=== PATIENT | female | born 1985 | race Caucasian/White ===

== ENCOUNTER 2021-02-25 11:22 | Outpatient (CLI) | payer OTHER, SELFPAY ==
[2021-02-25] VITALS (7 sets, daily range): BP systolic 117–122; BP diastolic 75–83; PULSE 76–87
[2021-02-25 12:18] LABS: Basophils Percent Auto 0.2 % (0.2-1.2); Eosinophils Absolute Auto 0.2 K/mm3 (0-0.3); Eosinophils Percent Auto 1.8 % (0-4.4); Hematocrit 29.8 % (37.0-47.0); Hemoglobin 9.6 g/dL (12.0-15.0); Immature Granulocyte Absolute 0.14 K/mm3 (0.00-0.031); Immature Granulocyte Percent A 1.4 % (0-0.5); Lymphocytes Absolute Auto 1.18 K/mm3 (0.9-3.2); Lymphocytes Percent Auto 11.8 % (18.3-44.2); Mean Corpuscular HGB Conc 32.2 g/dl (32-36); Mean Corpuscular Hemoglobin 26.6 pg (26-34); Mean Corpuscular Volume 82.5 fl (80-100); Mean Platelet Volume 11.1 fl (7.4-10.4); Monocytes Absolute Auto 0.8 K/mm3 (0.1-0.6); Monocytes Percent Auto 7.5 % (2.6-8.5); Neutrophils Absolute Auto 7.7 K/mm3 (1.3-6.7); Neutrophils Percent Auto 77.3 % (45.5-73.1); Platelet Count Result 184 k/mm3 (150-375); Red Blood Count 3.61 M/mm3 (4.2-5.4); Red Cell Distribution Width 14.2 % (11.5-14.5)
[2021-02-25 12:31] LABS: Alanine Aminotransferase 20 U/L (4-35); Albumin Level 2.9 g/dL (3.5-5.1); Alkaline Phosphatase 195 U/L (38-126); Anion Gap 2 mmol/L (8-16); Aspartate Amino Transferase 28 U/L (14-36); Bilirubin,Total 0.4 mg/dL (0.2-1.3); Blood Urea Nitrogen 8 mg/dL (7-17); Calcium 7.9 mg/dL (8.4-10.2); Carbon Dioxide 22 mmol/L (22-30); Chloride 110 mmol/L (98-107); Estimated Glomerular Filt Rate > 60; Glucose 75 mg/dL (65-105); Potassium 4.7 mmol/L (3.4-5.0); Sodium 134 mmol/L (137-145); Uric Acid 5.2 mg/dL (2.5-7.5)
[2021-02-25 12:43] LABS: Add Urine Microscopic? YES; Appearance Urine Cloudy (Clear); Bacteria Urine Trace /hpf; Bilirubin Urine Negative (Negative); Blood Urine Negative (Negative); Color Urine Yellow (Yellow); Glucose Urine UA Negative (Negative); Ketones Urine Negative (Negative); Leukocyte Esterase Ur 1+ LEU/UL (Negative); Mucus Urine Rare /lpf; Nitrate Urine Negative (Negative); Protein Urine 1+ mg/dL (Negative); RBC Urine 0-2 /hpf (0-2); Specific Grav Ur 1.019 (1.001-1.035); Squamous Epithelial Cell Urine Many /hpf (Few)
[2021-02-25 13:05] LABS: Creatinine Urine 157.4 mg/dL; Total Protein Urine Random 9 mg/dL; Ur Ttl Prot Creatinine Ratio 0.06 mg/mg (0-0.20)
--- NOTE | 2021-02-25 13:25 | PC.NURSE ---
Dr De La Rosa on unit, labs and BP's reviewed.
== END 2021-02-25 13:30 | disposition home or self-care (01) ==
LOC: ANHOBOP 11:30 → ANHOBPP 11:33
PROVIDERS: PCP Internal Medicine; Visit Provider Obstetrics & Gynecology
DX: O13.9 Gestational [pregnancy-induced] hypertension without significant proteinuria, unspecified trimester (principal)
CPT/HCPCS: 36415; 59025; 80053; 81001; 82570; 84156; 84550; 85025; 87086; 87088; 99199

== ENCOUNTER 2021-02-26 11:57 | Outpatient (CLI) | payer OTHER, SELFPAY ==
[2021-02-26 12:03] VITALS: BMI 34.1
[2021-02-26 14:14] LABS: Collection Time Urine 24 HOURS
[2021-02-26 14:16] LABS: Patient Weight 180 Lbs; Total Volume 24 Hour Urine 900 ml
[2021-02-26 14:22] LABS: Creatinine Clearance Urine 90.5 ml/min (75-125); Creatinine Urine 120.5 mg/dL
[2021-02-26 14:26] LABS: Total Protein Urine 24 Hr 90 MG/DAY (28-141); Total Protein Urine Random 10 mg/dL
== END 2021-02-26 11:58 | disposition home or self-care (01) ==
LOC: ANHOBOP 12:00
PROVIDERS: PCP Internal Medicine; Visit Provider Obstetrics & Gynecology
DX: O13.9 Gestational [pregnancy-induced] hypertension without significant proteinuria, unspecified trimester (principal)
CPT/HCPCS: 81050; 82575; 84156

== ENCOUNTER 2021-03-04 16:52 | Inpatient (IN) | payer OTHER, SELFPAY ==
[2021-03-04] VITALS (21 sets, daily range): BP systolic 113–153; BP diastolic 75–100; PULSE 71–102; TEMP 37.1
[2021-03-04] MEDS: DINOPROSTONE 10 MG VAG INSERT VAGINAL (17:39)
[2021-03-04 17:47] LABS: Basophils Percent Auto 0.2 % (0.2-1.2); Eosinophils Absolute Auto 0.1 K/mm3 (0-0.3); Eosinophils Percent Auto 1.3 % (0-4.4); Hematocrit 29.4 % (37.0-47.0); Hemoglobin 9.5 g/dL (12.0-15.0); Immature Granulocyte Absolute 0.09 K/mm3 (0.00-0.031); Lymphocytes Absolute Auto 1.14 K/mm3 (0.9-3.2); Lymphocytes Percent Auto 12.8 % (18.3-44.2); Mean Corpuscular HGB Conc 32.3 g/dl (32-36); Mean Corpuscular Hemoglobin 26.8 pg (26-34); Mean Corpuscular Volume 83.1 fl (80-100); Mean Platelet Volume 11.5 fl (7.4-10.4); Monocytes Absolute Auto 0.7 K/mm3 (0.1-0.6); Monocytes Percent Auto 7.3 % (2.6-8.5); Neutrophils Absolute Auto 6.9 K/mm3 (1.3-6.7); Neutrophils Percent Auto 77.4 % (45.5-73.1); Platelet Count Result 178 k/mm3 (150-375); Red Blood Count 3.54 M/mm3 (4.2-5.4); Red Cell Distribution Width 15.2 % (11.5-14.5); White Blood Count 8.9 K/mm3 (4.5-10.0)
[2021-03-04 17:58] LABS: INR 0.9; Partial Thromboplastin Time 25.4 SECONDS (22.3-36.8); Prothrombin Time 12.4 Seconds (11.1-14.7)
[2021-03-04 18:10] LABS: Alanine Aminotransferase 19 U/L (4-35); Alkaline Phosphatase 189 U/L (38-126); Anion Gap 4 mmol/L (8-16); Aspartate Amino Transferase 28 U/L (14-36); Bilirubin,Total 0.4 mg/dL (0.2-1.3); Blood Urea Nitrogen 10 mg/dL (7-17); Calcium 8.3 mg/dL (8.4-10.2); Carbon Dioxide 21 mmol/L (22-30); Chloride 111 mmol/L (98-107); Estimated Glomerular Filt Rate > 60; Glucose 83 mg/dL (65-105); Potassium 4.5 mmol/L (3.4-5.0); Sodium 136 mmol/L (137-145)
[2021-03-05] VITALS (232 sets, daily range): BP systolic 102–237; BP diastolic 57–97; PULSE 56–194; RESP 15–20; TEMP 36.1–37.6; O2SAT 94–100
[2021-03-05] MEDS: OXYTOCIN 30 UNITS/NS 500 ML 30 UNITS/500 ML BAG IV CONT (00:23)
[2021-03-05] MEDS: LACTATED RINGERS 1,000 ML 125 ML IV CONT ×2 (00:23→03:13)
--- NOTE | 2021-03-05 03:54 | WPDANESEPPF ---
Anes - Initial Pre Proc Eval Procedure: labor epidural Date/Time: 03/05/21 03:54 Surgeon: Jeff De La Rosa MD Pre Op Diagnosis: labor pain Pre Op Diagnosis: iol Patient Data Age: 35 Gender: F Height: Weight: 83 kg Last Vital Signs Temp 36.5 C 03/05/21 03:26 Pulse 77 03/05/21 03:53 BP 122/84 03/05/21 03:53 Pulse Ox 94 03/05/21 03:53 Allergies Allergy/AdvReac Type Severity Reaction Status Date / Time No Known Allergies Allergy Verified 03/01/21 15:33 Home Medications Medication Instructions Recorded Confirmed Type PNV cmb#95-ferrous fumarate-FA 1 tablet PO DAILY 03/01/21 03/01/21 History [] escitalopram oxalate 10 mg PO DAILY 03/01/21 03/01/21 History valacyclovir [Valtrex] 500 mg PO DAILY 03/01/21 03/01/21 History Laboratory Tests 03/04/21 03/04/21 03/04/21 17:35 17:35 17:35 WBC 8.9 K/mm3 K/mm3 (4.5-10.0) RBC 3.54 M/mm3 L M/mm3 (4.2-5.4) Hgb 9.5 g/dL L g/dL (12.0-15.0) Hct 29.4 % L % (37.0-47.0) MCV 83.1 fl fl (80-100) MCH 26.8 pg pg (26-34) MCHC 32.3 g/dl g/dl (32-36) RDW 15.2 % H % (11.5-14.5) Plt Count 178 k/mm3 k/mm3 (150-375) MPV 11.5 fl H fl (7.4-10.4) Immature Gran % (Auto) 1.0 % H % (0-0.5) Neut % (Auto) 77.4 % H % (45.5-73.1) Lymph % (Auto) 12.8 % L % (18.3-44.2) [place] % (Auto) 7.3 % % (2.6-8.5) Eos % (Auto) 1.3 % % (0-4.4) Baso % (Auto) 0.2 % % (0.2-1.2) Lymph # (Auto) 1.14 K/mm3 K/mm3 (0.9-3.2) [place] # (Auto) 0.7 K/mm3 H K/mm3 (0.1-0.6) Eos # (Auto) 0.1 K/mm3 K/mm3 (0-0.3) Baso # (Auto) 0.0 K/mm3 K/mm3 (0.0-0.1) Abs Immat Gran (auto) 0.09 K/mm3 H K/mm3 (0.00-0.031) Absolute Neuts (auto) 6.9 K/mm3 H K/mm3 (1.3-6.7) Absolute Nucleated RBC 0.0 K/mm3 K/mm3 (0.0-0.012) Nucleated RBC % 0.0 % % (0.0-0.2) PT INR APTT Sodium Potassium Chloride Carbon Dioxide Anion Gap BUN Creatinine Estim Creat Clear Calc Estimated GFR Glucose Calcium Total Bilirubin AST ALT Alkaline Phosphatase Total Protein Albumin RPR Pending Blood Type O Positive Antibody Screen Negative 03/04/21 03/04/21 17:38 17:38 WBC RBC Hgb Hct MCV MCH MCHC RDW Plt Count MPV Immature Gran % (Auto) Neut % (Auto) Lymph % (Auto) [place] % (Auto) Eos % (Auto) Baso % (Auto) Lymph # (Auto) [place] # (Auto) Eos # (Auto) Baso # (Auto) Abs Immat Gran (auto) Absolute Neuts (auto) Absolute Nucleated RBC Nucleated RBC % PT 12.4 Seconds Seconds (11.1-14.7) INR 0.9 APTT 25.4 SECONDS SECONDS (22.3-36.8) Sodium 136 mmol/L L mmol/L (137-145) Potassium 4.5 mmol/L mmol/L (3.4-5.0) Chloride 111 mmol/L H mmol/L (98-107) Carbon Dioxide 21 mmol/L L mmol/L (22-30) Anion Gap 4 mmol/L L mmol/L (8-16) BUN 10 mg/dL mg/dL (7-17) Creatinine 0.80 mg/dL mg/dL (0.7-1.0) Estim Creat Clear Calc Not Reportable Estimated GFR > 60 (59 - ) Glucose 83 mg/dL mg/dL (65-105) Calcium 8.3 mg/dL L mg/dL (8.4-10.2) Total Bilirubin 0.4 mg/dL mg/dL (0.2-1.3) AST 28 U/L U/L (14-36) ALT 19 U/L U/L (4-35) Alkaline Phosphatase 189 U/L H U/L (38-126) Total Protein 6.0 g/dL L g/dL (6.3-8.2) Albumin 3.0 g/dL
--- NOTE | 2021-03-05 07:40 | WPDOBADMIT ---
Obstetrics - Admit Note Admission Note: record reviewed. Additions to the history and/or subsequent changes in the physical findings follow. 35 y/o at 37 1/7 weeks with gestational hypertension. No headaches, no visual field change, no epigastric pain. Had a sudden worsening of edema last week. Good movement. Cervidil last night, had SROM and Cervidil has been withdrawn. Now comfortable with epidural. Receiving oxytocin. GBS neg. 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 AVSS NST reactive TOCO: contractions every 2-4 min ABD soft, nontender, gravid EXT nontender Pelvic: BLE neg. Cervix 5/90/-1. IUPC placed. Pertinent abnormal labs: creatinine 0.8 A: IUP at term with gestational hypertension, here for induction of labor. P: Oxytocin. Anticipate .
--- NOTE | 2021-03-05 12:32 | PM.OBPNLAB ---
Pain Control Date/time seen: 03/05/21 12:32 Comments: Comfortable with epidural. Pelvic Exam Dilation (cm): 9 Effacement (%): 100 station: -1 Comments: LOT position on exam. Contractions Contraction frequency: 3 Contraction pattern: Regular Status status: Category l Assessment and Plan Pitocin rate (mU/min): 32 Comments: Continue labor.
[2021-03-05 14:22] LABS: Rapid Plasma Reagin Non-Reactive (NonReactive)
--- NOTE | 2021-03-05 16:58 | WPDANESEFPP ---
Anes - Eval Final PreProcedure Day of Procedure 03/05/21 16:58 Patient weight: obese Heart: regular rate and rhythm Lungs: clear to auscultation and normal air movement Airway: Mallampati scale class III Neurological: alert and oriented Last oral intake: >/= 8 hours ASA classification: III Emergent: no Anesthetic plan: proceed Anesthesia type and monitoring: regional epidural and standard monitoring Informed Consent: The patient's anesthetic plan and its attendant risks and benefits were discussed with the patient/family/POA. Questions were solicited and answers provided to the satisfaction of the patient/family/POA.
--- NOTE | 2021-03-05 17:10 | PM.OBPNLAB ---
Pain Control Date/time seen: 03/05/21 17:10 Comments: Has pushed to try to reduce the anterior cervix, but there has been no meaningful descent. Pelvic Exam Dilation (cm): 9 Effacement (%): 100 station: -1 Contractions Contraction frequency: 3 Contraction pattern: Regular Status Comments: Reactive with mild variable decelerations. Assessment and Plan Comments: A: Arrest of dilation in labor / deep transverse arrest P: Offered continued labor vs. primary . Reviewed risks, benefits, alternatives in detail. She understands risks of surgery to include risks of anesthesia, risks of pain, infection, bleeding, blood products, thromboembolic phenomena and damage to adjacent structures such as bowel, bladder, ureters, blood vessels and nerves. She understands all these risks and elects to proceed with surgery.
--- NOTE | 2021-03-05 18:21 | PM.OBPRVD ---
OB - Delivery Note Procedure Delivery date: 03/05/21 Procedure: Procedures Operation Date: 03/05/21 17:15 <No data on this case meets the specified criteria> Primary low transverse delivery Induction method: per pitocin protocol and per cervidil protocol Delivery augmentation: pitocin Delivery monitor: external FHT, external uterine and internal uterine Route of delivery: Specimen: Yes (cord blood, placenta) Quantitative Blood Loss (ml): 560 Anesthesia type: Epidural Disposition: PACU Complications: None Narrative: The patient was taken to the operating room where she was prepared and draped in the usual sterile fashion in dorsal supine position with a leftward tilt. She received cefazolin preoperatively. Epidural anesthesia was found to be adequate. A Pfannenstiel skin incision was made and carried through to the underlying layer of the fascia. The fascia was incised in the midline and the incision was extended laterally. The fascia was dissected free of the underlying rectus muscles. The rectus muscles were in the midline. The peritoneum was identified, tented up and entered sharply. The peritoneal incision was extended superiorly and inferiorly with good visualization of the bladder. The bladder blade was placed. The vesicouterine peritoneum was identified, tented up and entered sharply. The incision was extended laterally and the bladder flap was developed. The bladder blade was replaced. The uterus was then incised sharply in a transverse fashion along the lower uterine segment. The incision was extended laterally. The infant's head was delivered atraumatically to the sterile field, followed by the body. The nose and mouth were bulb suctioned. After a delay, the cord was clamped and cut. The infant was handed off the field. Cord blood was collected. The placenta was removed manually and was passed off the field. The uterus was exteriorized and cleared of all clots and debris. The uterine incision was reapproximated using 0 Monocryl in a running, locked fashion. A second, imbricating layer of the same suture was placed. Excellent hemostasis resulted as did excellent reapproximation of the normal anatomy. The uterus was returned the abdomen. The pelvis was irrigated copiously with warmed normal saline. Rigorous hemostasis was assured. The fascial layer was reapproximated using 0 Vicryl in a running fashion. The skin was closed with a running, subcuticular stitch of 4 0 Vicryl. Dermaflex was applied externally. Sponge, lap, needle and instrument counts were correct. The patient was taken to the recovery room in stable condition. The infant went to the nursery. I was present and scrubbed the entire procedure. Baby Date of : 03/05/21 Time of : 17:40 Weeks of gestation at delivery: 37 Infant gender: Male Weight (pounds): 7 Weight (ounces): 1 presentation: vertex Placenta delivery description: Manual Removal and Normal Configuration cord vessel description: 3 Vessels and Delayed Cord Clamping score one minute: 4 score five minutes: 7
--- NOTE | 2021-03-05 18:26 | PM.OBDSVD ---
DS: Admitting Diagnosis Admitting Diagnosis Admitting Diagnosis: IUP at 37 1/7 weeks Gestational hypertension DS: Discharge Diagnosis Discharge Diagnosis (1) Deep transverse arrest: Code(s): O64.0XX0 - Obstructed labor due to incomplete rotation of head, not applicable or unspecified Status: Acute (2) Gestational hypertension: Code(s): O13.9 - Gestational [-induced] hypertension without significant proteinuria, unspecified trimester Status: Acute OB - DS: Summary OB Procedures : None OB Procedures Intrapartum: OB Procedures: : None Peripartum Data Procedures: Procedures Operation Date: 03/05/21 17:15 <No data on this case meets the specified criteria> DS: Data Data Completed and Pending Labs on day of discharge: Labs from last 24 hours 03/04/21 03/04/21 17:35 17:35 RPR Non-reactive Blood Type O Positive Antibody Screen Negative Discharge Plan Discharge Attending physician on discharge: Jeff De La Rosa Discharging Clinician: Rj Patient Disposition: Home, Self-Care Activity: may shower, may drive after 2 weeks and pelvic rest Diet: regular Wound Care Instructions: incision open to air Discharge Instructions: Call or return if temperature above 100.4? F, increased abdominal pain, increased vaginal bleeding or any new problems. Stand Alone Forms: General Discharge Information Follow-up/Referrals: Jeff De La Rosa MD [Physician] - 4 Weeks Discharge Medications: New ibuprofen 600 mg tablet 600 mg PO Q6H PRN (Reason: cramps) Qty: 30 RF: 0 ferrous sulfate 325 mg (65 mg iron) tablet 325 mg PO DAILY Qty: 30 RF: 0 hydrocodone-acetaminophen 5-325 mg tablet 1 - 2 tablet PO Q6H PRN (Reason: pain) Qty: 30 RF: 0 Continued valacyclovir [Valtrex] 500 mg Tablet 500 mg PO DAILY RF: 0 escitalopram oxalate 10 mg Tablet 10 mg PO DAILY RF: 0 PNV cmb#95-ferrous fumarate-FA [] 28 mg iron- 800 mcg Tablet 1 tablet PO DAILY RF: 0 Date of admission: 03/04/21 16:52 Primary Care Provider: SusieHaydee Admitting Provider: Jeff De La Rosa Attending physician on admission: Jeff De La Rosa Condition: Stable
--- NOTE | 2021-03-05 18:27 | PM.IMHP ---
H&P: HPI History of Present Illness Date/Time: 03/05/21 18:27 35 y/o at 37 1/7 weeks with mildly elevated bp, marked edema, no significant proteinuria, no headaches or epigastric / RUQ tenderness, no visual field change. Here for induction of labor. Cervidil placed overnight. Had SROM, Cervidil was withdrawn. Oxytocin was administered. She received an epidural for pain control. She was able to achieve dilation to 9 cm with 100% effacement and -1 station, with persistent LOT position. Over several hours, adequate contractions, position change, and even attempts at pushing, she was offered a primary . Chief Complaint: Here for labor induction Review of Systems Review of Systems: All systems reviewed & are unremarkable except as noted in HPI and below PMFSH Past Medical History Medical History Depression affecting Gestational hypertension Surgical History Surgical History History of breast augmentation History of tonsillectomy History of wisdom tooth extraction Family History Family History Grandparent Diabetes mellitus Mother Hypertension Social History Social History Smoking status: Never smoker Second hand tobacco smoke exposure: No Alcohol intake: never Substance use: never Gender identity (if verbalized by the patient): Female Spiritual care concerns: No Meds Home Medications and Allergies Home Medications Medication Instructions Recorded Confirmed Type PNV cmb#95-ferrous fumarate-FA 1 tablet PO DAILY 03/01/21 03/01/21 History [] escitalopram oxalate 10 mg PO DAILY 03/01/21 03/01/21 History valacyclovir [Valtrex] 500 mg PO DAILY 03/01/21 03/01/21 History Allergies Allergy/AdvReac Type Severity Reaction Status Date / Time No Known Allergies Allergy Verified 03/01/21 15:33 Vital Signs Vital Signs - 24 hr 03/04/21 18:30 03/04/21 18:45 03/04/21 19:00 Temperature 37.1 C Pulse Rate 85 94 102 H Blood Pressure 138/93 H 124/88 153/98 H Pulse Oximetry 03/04/21 19:15 03/04/21 19:30 03/04/21 19:45 Temperature Pulse Rate 79 101 H 92 Blood Pressure 133/87 132/87 129/82 Pulse Oximetry 03/04/21 21:35 03/04/21 21:45 03/04/21 22:00 Temperature Pulse Rate 80 84 79 Blood Pressure 138/86 126/89 118/82 Pulse Oximetry 03/04/21 22:15 03/04/21 22:30 03/04/21 22:45 Temperature Pulse Rate 71 76 89 Blood Pressure 121/82 120/77 116/83 Pulse Oximetry 03/04/21 23:00 03/04/21 23:15 03/04/21 23:30 Temperature Pulse Rate 84 83 83 Blood Pressure 113/78 115/75 126/87 Pulse Oximetry 03/04/21 23:45 03/05/21 00:00 03/05/21 00:15 Temperature Pulse Rate 88 72 77 Blood Pressure 116/78 115/63 122/77 Pulse Oximetry 03/05/21 00:24 03/05/21 00:30 03/05/21 00:45 Temperature 36.5 C Pulse Rate 73 64 Blood Pressure 130/85 139/92 H Pulse Oximetry 03/05/21 01:00 03/05/21 01:15 03/05/21 01:30 Temperature Pulse Rate 64 70 73 Blood Pressure 144/91 H 127/97 H 121/87 Pulse Oximetry 03/05/21 01:45 03/05/21 02:00 03/05/21 02:15 Temperature Pulse Rate 73 66 69 Blood Pressure 130/82 120/65 138/85 Pulse Oximetry 03/05/21 02:30 03/05/21 02:45 03/05/21 03:00 Temperature Pulse Rate 72 74 76 Blood Pressure 143/92 H 131/94 H 128/89 Pulse Oximetry 03/05/21 03:15 03/05/21 03:26 03/05/21 03:30 Temperature 36.5 C Pulse Rate 80 72 Blood Pressure 145/89 H 147/88 H Pulse Oximetry 03/05/21 03:37 03/05/21 03:38 03/05/21 03:43 Temperature Pulse Rate 82 Blood Pressure 142/89 H Pulse Oximetry 100 100 03/05/21 03:44 03/05/21 03:45 04/16/21 03:48 Temperature Pulse Rate 75 80 79 Blood Pressure 132/85 146/92 H 138/76 Pulse Oxime
[2021-03-05] MEDS: OXYTOCIN 30 UNITS/NS 500 ML 30 UNITS/500 ML BAG 125 UNITS IV CONT (19:04)
[2021-03-05] MEDS: MORPHINE SULFATE (*CRX) 2 MG/ML INJ IV PUSH ×2 (19:18→20:41)
--- NOTE | 2021-03-05 20:55 | OBPPTRN ---
Patient transferred to post room #289 via wheelchair with in crib. Support person present. Oriented to unit, room, information board, rooming in, admission packet and security measures. Patient verbalizes understanding.
[2021-03-05] MEDS: IBUPROFEN 600 MG TABLET PO (22:25)
[2021-03-05] MEDS: SIMETHICONE 80 MG TAB.CHEW PO (22:26)
[2021-03-05] MEDS: HYDROcodone/acetaminophen (*CRX) 5-325 MG TABLET 1 TAB PO (22:26)
[2021-03-06] MEDS: HYDROcodone/acetaminophen (*CRX) 10-325 MG TABLET 1 TAB PO ×3 (01:25→12:50)
[2021-03-06 05:40] VITALS: BP 111/71; PULSE 76; RESP 16; TEMP 36.9
[2021-03-06 06:14] LABS: Basophils Percent Auto 0.2 % (0.2-1.2); Eosinophils Percent Auto 0.2 % (0-4.4); Hemoglobin 7.3 g/dL (12.0-15.0); Immature Granulocyte Absolute 0.16 K/mm3 (0.00-0.031); Immature Granulocyte Percent A 0.8 % (0-0.5); Lymphocytes Percent Auto 3.6 % (18.3-44.2); Mean Corpuscular HGB Conc 31.7 g/dl (32-36); Mean Corpuscular Hemoglobin 26.5 pg (26-34); Mean Corpuscular Volume 83.6 fl (80-100); Mean Platelet Volume 11.1 fl (7.4-10.4); Monocytes Absolute Auto 0.8 K/mm3 (0.1-0.6); Monocytes Percent Auto 4.3 % (2.6-8.5); Neutrophils Absolute Auto 17.5 K/mm3 (1.3-6.7); Neutrophils Percent Auto 90.9 % (45.5-73.1); Platelet Count Result 149 k/mm3 (150-375); Red Blood Count 2.75 M/mm3 (4.2-5.4); Red Cell Distribution Width 15.3 % (11.5-14.5); White Blood Count 19.3 K/mm3 (4.5-10.0)
[2021-03-06] MEDS: IBUPROFEN 600 MG TABLET PO (07:12)
[2021-03-06] MEDS: SIMETHICONE 80 MG TAB.CHEW PO (07:12)
[2021-03-06] MEDS: MULTIVIT/MIN/PREN/FOL AC/IRON TABLET 1 TAB PO (07:12)
[2021-03-06] MEDS: POLYSACCHARIDE IRON COMPLEX 150 MG CAPSULE PO ×2 (07:12→18:10)
[2021-03-06] MEDS: DOCUSATE SODIUM 100 MG CAPSULE PO ×2 (07:12→18:10)
[2021-03-06] MEDS: KCL 20 MEQ/D5/0.45% SOD CHL 1,000 ML 125 ML IV CONT (07:13)
[2021-03-06 09:00] VITALS: BP 105/69; PULSE 87; RESP 16; TEMP 36.6; O2SAT 96
--- NOTE | 2021-03-06 10:35 | WPDANLDPN2 ---
Anes-Prog Note L&D Date/Time: 03/06/21 10:35 Comfortable throughout: labor and section Neuraxial method: epidural Epidural/Spinal procedure site: clean & non-tender Neuro status: Neuro function grossly intact. Cardiovascular status: normal Respiratory status: normal Airway patency: baseline Mental status: baseline Post-Op hydration status: normal Vital Signs: Last Vital Signs Temp 36.6 C 03/06/21 09:00 Pulse 87 03/06/21 09:00 Resp 16 03/06/21 09:00 BP 105/69 03/06/21 09:00 Pulse Ox 96 03/06/21 09:00 Pain score (VAS): 0 I/O: Intake & Output 03/05/21 03/06/21 03/06/21 23:59 07:59 15:59 Intake Total 500 1000 Output Total 150 200 375 Balance -150 300 625 Post-procedural complaints: none Patient feedback: Patient satisfied with anesthetic care.
--- NOTE | 2021-03-06 10:36 | WPDANLDNPN2 ---
Anes-Prog Note L&D-Neuraxial Date/Time: 03/06/21 10:36 Neuraxial medications: epidural PF morphine Opiod-related complaints: none Patient feedback: Patient satisfied with post-operative pain management.
--- NOTE | 2021-03-06 11:30 | PCDIET ---
Notified Dr. De La Rosa of patients hgb level of 7.3, down from starting hgb of 9.5. Notified of vital signs all WNL and patient doing well. No new orders at this time, will continue to monitor.
--- NOTE | 2021-03-06 12:11 | P.PNOB_ITS ---
OB - PN: Subj Subjective Date/time seen: 03/06/21 12:11 Narrative: Pain OK. Voiding. Tolerating diet. Would like circumcision for son. OB - PN: Obj Data Labs CBC & Chem 7: 03/06/21 05:48 03/04/21 17:38 Labs: Laboratory Results - last 24 hr 03/04/21 03/06/21 17:35 05:48 WBC 19.3 H RBC 2.75 L Hgb 7.3 L Hct 23.0 L MCV 83.6 MCH 26.5 MCHC 31.7 L RDW 15.3 H Plt Count 149 L MPV 11.1 H Immature Gran % (Auto) 0.8 H Neut % (Auto) 90.9 H Lymph % (Auto) 3.6 L [place] % (Auto) 4.3 Eos % (Auto) 0.2 Baso % (Auto) 0.2 Lymph # (Auto) 0.70 L [place] # (Auto) 0.8 H Eos # (Auto) 0.0 Baso # (Auto) 0.0 Abs Immat Gran (auto) 0.16 H Absolute Neuts (auto) 17.5 H Absolute Nucleated RBC 0.0 Nucleated RBC % 0.0 RPR Non-reactive OB - PN A/P Plan Comments: A: POD#1, doing well. P: Routine care. Reviewed circ. Exam Narrative: Exam Narrative: AVSS I/O OK ABD soft, nontender, fundus firm. Incision c/d/i. EXT nontender
[2021-03-06 12:30] VITALS: BP 133/73; PULSE 81; RESP 16; TEMP 36.1; O2SAT 98
[2021-03-06 19:50] VITALS: BP 116/80; PULSE 88; RESP 16; TEMP 36.9
[2021-03-07 07:30] VITALS: BP 131/86; PULSE 89; RESP 16; TEMP 36.4; O2SAT 98
[2021-03-07] MEDS: POLYSACCHARIDE IRON COMPLEX 150 MG CAPSULE PO ×2 (07:31→16:37)
[2021-03-07] MEDS: MULTIVIT/MIN/PREN/FOL AC/IRON TABLET 1 TAB PO (07:31)
[2021-03-07] MEDS: DOCUSATE SODIUM 100 MG CAPSULE PO ×2 (07:32→16:37)
[2021-03-07] MEDS: SIMETHICONE 80 MG TAB.CHEW PO (07:32)
--- NOTE | 2021-03-07 09:05 | PM.OBPNVD ---
OB - PN: Subj Subjective Date/time seen: 03/07/21 09:05 Narrative: Pain OK. Tolerating diet. OB - PN: Obj Data Labs CBC & Chem 7: 03/06/21 05:48 03/04/21 17:38 OB - PN A/P Plan Comments: A: POD#2, doing well. P: Routine care. Exam Narrative: Exam Narrative: AVSS I/O OK ABD soft, nontender, fundus firm. Incision c/d/i. EXT nontender
[2021-03-07 19:00] VITALS: BP 135/91; PULSE 85; RESP 18; TEMP 37.3; O2SAT 100
[2021-03-08 07:50] VITALS: BP 133/87; PULSE 82; RESP 16; TEMP 36.9; O2SAT 99
--- NOTE | 2021-03-08 08:48 | PM.OBPNVD ---
OB - PN: Subj Subjective Date/time seen: 03/08/21 08:48 Narrative: Pain OK. Tolerating diet. Would like to go home. OB - PN: Obj Data Labs CBC & Chem 7: 03/06/21 05:48 03/04/21 17:38 OB - PN A/P Plan Comments: A: POD#3, doing well. P: Home to f/u 4 weeks. Exam Narrative: Exam Narrative: AVSS ABD soft, nontender, fundus firm. Incision c/d/i. EXT nontender
[2021-03-08 09:00] VITALS: PULSE 82; RESP 16; O2SAT 99
[2021-03-08] MEDS: DOCUSATE SODIUM 100 MG CAPSULE PO (09:17)
[2021-03-08] MEDS: MULTIVIT/MIN/PREN/FOL AC/IRON TABLET 1 TAB PO (09:17)
[2021-03-08] MEDS: POLYSACCHARIDE IRON COMPLEX 150 MG CAPSULE PO (09:17)
--- NOTE | 2021-03-08 10:15 | PC.NURSE ---
Consult with pt., mother reports infant eagerly fed for first feeding and has been sleepy since. Discussed the early 37 week infant, establishing may have its own unique set of circumstances due to their immaturity. infants may be less alert, have less stamina and may have issues with latch, suck and swallow. With the possible inability to have a vigorous suck swallow, infants may not be adequately stimulating mother and/or able to have adequate milk transfer effecting output, hydration, weight loss and jaundice. Pumping should be considered for additional stimulation and to offer EBM as part of supplement if needed. Mother reports she has not been pumping regularly, due to not getting anything Assured mother this is normal in the colostrum phase and milk should transition in within a few days with regular stimulation. Mother is willing to follow requested pumping schedule. Reviewed breast pump care and usage, pumping schedule, nipple care, and collection and storage of breast milk. Encouraged [id number], breast massage and manual expression to stimulate supply. Assessed patient for correct flange size, placement and draw. Patient verbalizes and demonstrates understanding of instructions. Suggested mother attempt infant to breast each feeding for 5-10 minutes, then supplement at least 30 mls, followed with 15-20 minutes of pumping. Mother may use EBM as part of supplement. Discussed with the volume infant is taking from supplement, he may not be ready to feed for 4 hours. Mother should follow feeding schedule with pumping increasing to 20 minutes if 4 hours. Reviewed feeding cues, frequencies, duration of feedings, feeding elimination flow sheet, and signs of adequate intake. Demonstrated stimulation techniques to wake infant for feeding. Mother is feeding as required and waking to feed if needed. is currently meeting outcomes for weight, output, jaundice and feeding frequencies. Mother states she feels confident to continue current feeding plan of attempt/supplement/pump at home. Reviewed transition to breast milk, signs of adequate intake, and engorgement/relief. Instructed to call ICP if intake/output less than required. Reviewed regular medications mother is taking. Information provided per [place]. Reviewed community resources on the [employer] website and in the Mom/Baby guide. Information on outpatient services provided. Mother has no further questions at this time.
--- NOTE | 2021-03-08 12:43 | PC.NURSE ---
Patient viewed the discharge video Mother & Baby Care, The First Two Weeks . Patient was given the opportunity and encouraged to ask questions. Patient verbalized understanding of information shared and has been given the mother/baby guide for home reference.
[2021-03-10 11:05] VITALS: BP 144/98; PULSE 73; RESP 20; TEMP 37.4; O2SAT 100
== END 2021-03-08 14:20 | disposition home or self-care (01) | DRG 787 ==
LOC: ANHLDR 03-05 18:27 → ANHOB2 03-05 21:54
PROVIDERS: Admitting Provider Obstetrics & Gynecology; PCP Internal Medicine; Visit Provider Obstetrics & Gynecology
PROC: 10D00Z1 Extraction of Products of Conception, Low, Open Approach (ICD-10-PCS; CPT 59514; principal; 2021-03-05 17:15)
DX: O13.4 Gestational [pregnancy-induced] hypertension without significant proteinuria, complicating childbirth (principal); O98.32 Other infections with a predominantly sexual mode of transmission complicating childbirth; Z37.0 Single live birth; Z3A.37 37 weeks gestation of pregnancy; O64.0XX0 Obstructed labor due to incomplete rotation of fetal head, not applicable or unspecified; O99.214 Obesity complicating childbirth; E66.9 Obesity, unspecified; O36.8330 Maternal care for abnormalities of the fetal heart rate or rhythm, third trimester, not applicable or unspecified; O99.344 Other mental disorders complicating childbirth; F32.9 Major depressive disorder, single episode, unspecified; B00.9 Herpesviral infection, unspecified
CPT/HCPCS: 36415; 80053; 85025; 85610; 85730; 86592; 86850; 86900; 86901; 88307; A9270; J1885; J2270; J2274; J2405; J2590; J2795; J3480; J7120

== ENCOUNTER 2021-04-22 07:25 | Outpatient (RCR) | payer OTHER, SELFPAY ==
[2021-03-18 10:09] VITALS: BMI 29.3
== END 2021-06-07 09:25 | disposition home or self-care (01) ==
LOC: ANHWOC 07:25
PROVIDERS: PCP Internal Medicine; Visit Provider Obstetrics & Gynecology
DX: T81.31XD Disruption of external operation (surgical) wound, not elsewhere classified, subsequent encounter (principal)
CPT/HCPCS: 99212; 99213; G0463

== ENCOUNTER 2023-03-19 07:59 | Inpatient (IN) | payer OTHER, SELFPAY ==
[2023-03-19] VITALS (55 sets, daily range): BP systolic 84–118; BP diastolic 52–86; PULSE 66–97; RESP 16–18; TEMP 36.1–36.9; O2SAT 97–100; BMI 31.2
--- NOTE | 2023-03-19 08:05 | PM.IMHP ---
H&P: HPI History of Present Illness Date/Time: 03/19/23 08:05 Chief Complaint: Ruptured membranes at 35 weeks gestation with placenta previa previous section Narrative: this is a 37-year-old 2 para 1 with a history of previous section unknown previa who complained of bleeding and rupture membranes early this morning. She has a history of genital HSV history of depression and history of gestational hypertension in her last . She had a low-transverse section and had some complications following the. This has been complicated by placenta previa. She will undergo repeat section. Type and cross for blood is also been undertaken secondary to her previa. [facility] Past Medical History Medical History Depression affecting Gestational hypertension Surgical History Surgical History History of breast augmentation History of tonsillectomy History of wisdom tooth extraction Family History Family History Grandparent Diabetes mellitus Mother Hypertension Social History Social History Smoking status: Never smoker Second hand tobacco smoke exposure: No Alcohol intake: never Substance use: never Gender identity (if verbalized by the patient): Female Sexual Orientation (if Verbalized by the Patient): Straight or Heterosexual Spiritual care concerns: No Meds Home Medications and Allergies Home Medications Medication Instructions Recorded Confirmed Type escitalopram oxalate 10 mg tablet 10 mg PO DAILY 03/01/21 03/18/21 History vit no.95-ferrous 1 tablet PO DAILY 03/01/21 03/18/21 History fumarate 28 mg-folic acid 800 mcg tablet () valacyclovir 500 mg tablet 500 mg PO DAILY 03/01/21 03/18/21 History (Valtrex) ferrous sulfate 325 mg (65 mg 325 mg PO DAILY #30 tabs 03/06/21 03/18/21 Rx iron) tablet hydrocodone 5 mg-acetaminophen 325 1 - 2 tablet PO Q6H PRN pain #30 03/06/21 03/18/21 Rx mg tablet tabs ibuprofen 600 mg tablet 600 mg PO Q6H PRN cramps #30 tabs 03/06/21 03/18/21 Rx Allergies Allergy/AdvReac Type Severity Reaction Status Date / Time No Known Allergies Allergy Verified 03/01/21 15:33 Exam Const: General: cooperative, healthy appearing, comfortable and well groomed Nutritional Appearance: average body habitus Orientation/consciousness: oriented to person, oriented to place and oriented to time HENMT: Head: normal to inspection Resp: Effort & Inspection: normal respiratory effort Cardio: Rate: regular rate Rhythm: regular rhythm Heart sounds: S1 normal heart sound present and S2 normal heart sound present GI: Inspection: normal to inspection ( Uterus is soft and gravid) Assessment and Plan Assessment and plan (1) Premature rupture of membranes (PROM) at term with onset of labor after 24 hours, antepartum: Code(s): O42.12 - Full-term premature rupture of membranes, onset of labor more than 24 hours following rupture Status: Acute (2) Placenta previa: Code(s): O44.00 - Complete placenta previa NOS or without hemorrhage, unspecified trimester Status: Acute (3) Previous section: Code(s): Z98.891 - History of uterine scar from previous surgery Status: Acute Plan proceed with repeat low-transverse section. Type and cross of blood has been undertaken.
[2023-03-19] MEDS: LACTATED RINGERS 1,000 ML 125 ML IV CONT (08:50)
[2023-03-19 08:54] LABS: Basophils Percent Auto 0.2 % (0.2-1.2); Eosinophils Absolute Auto 0.1 K/mm3 (0-0.3); Eosinophils Percent Auto 1.7 % (0-4.4); Hematocrit 31.5 % (37.0-47.0); Hemoglobin 10.3 g/dL (12.0-15.0); Immature Granulocyte Absolute 0.06 K/mm3 (0.00-0.031); Immature Granulocyte Percent A 0.7 % (0-0.5); Lymphocytes Absolute Auto 1.21 K/mm3 (0.9-3.2); Lymphocytes Percent Auto 14.5 % (18.3-44.2); Mean Corpuscular HGB Conc 32.7 g/dl (32-36); Mean Corpuscular Volume 85.6 fl (80-100); Mean Platelet Volume 11.1 fl (7.4-10.4); Monocytes Absolute Auto 0.6 K/mm3 (0.1-0.6); Monocytes Percent Auto 7.7 % (2.6-8.5); Neutrophils Absolute Auto 6.3 K/mm3 (1.3-6.7); Neutrophils Percent Auto 75.2 % (45.5-73.1); Platelet Count Result 165 k/mm3 (150-375); Red Blood Count 3.68 M/mm3 (4.2-5.4); Red Cell Distribution Width 18.5 % (11.5-14.5); White Blood Count 8.4 K/mm3 (4.5-10.0)
--- NOTE | 2023-03-19 09:01 | LDADM ---
This patient, Krista Lopez, was admitted to Labor/Delivery/Recovery 120 on 03/19/23 at 07:59. Plans for labor, pain management and were discussed with patient. Patient/family oriented to hospital policies and general routines including ID bracelet, bed and alarms, visiting hours, pain management, procedures, bathroom and other care routines, personal items, smoking policy, room service/diet and guest tray routines, infant security routines, and visiting hours. Patient/Family are encouraged to report perceived risks to care and to ask questions if they do not understand what they are told or what they should do. See OBIX for further documentation.
--- NOTE | 2023-03-19 09:04 | WPDHPUPDATE1 ---
History and Physical Update Update Date/Time: 03/19/23 09:04 History and Physical has been reviewed, including an updated exam of the patient. There are NO changes in the patient's condition. Risks, benefits, and alternatives have been discussed and questions answered. Patient agrees to proceed with procedure. desires btl. reviewed
[2023-03-19] MEDS: ceFAZolin 2 GM/D5W 50 ML 2 GM/50 ML BAG IVPB (09:09)
[2023-03-19 09:46] LABS: HIV 1/2 Ab P24 Ag Result Negative (Negative)
--- NOTE | 2023-03-19 10:19 | W.PM.PROC2 ---
Procedure Note - Detailed Date of Procedure 03/19/23 Pre-op Diagnosis SROM/ 35 weeks/ placenta previa/previous section /sterilization Post-op Diagnosis Same Procedure Performed repeat low transverse section and bilateral tubal ligation via modified Sha method Surgeon Wilmer Griggs MD Anesthesia Spinal Indications 34-year-old female with rupture membranes and breech presentation with anterior placenta previa previous section desiring sterilization and ruptured membranes Findings female with shoulder presentation. Anterior placenta. Previa was noted complete. Normal-appearing ovaries and tubes. Description of Procedure Patient was admitted with ruptured membranes previous section and placenta previa. After obtained formed consent she was taken to the back prepped draped in normal sterile fashion. She is placed in the supine position. Under excellent spinal anesthetic the abdomen was entered through the previous Pfannenstiel incision breast layers of fascia. Fascia incised midline upward outward fashion bilaterally. Underlying muscles were sharply dissected delivered fairly discharge. Peritoneum was opened in superiorly and inferiorly dome of the bladder. Bladder blade placed and bladder flap formed. malpresentation was noted the placenta was palpable anteriorly. A low-transverse incision made the placenta was present. The baby was noted to be a shoulder presentation with an arm present. This was then pushed up from underneath and the baby swung around to breech presentation and delivered with the breech to the maternal right anterior posterior shoulders were then delivered up the arms were delivered medially and the head delivered in the flexed position and then passed off the table. Placenta delivered intact manually uterus delivered on the abdomen wrapped in moist towel. After assuring no membranes remained the uterus uterus closed continuous running locking 0 Vicryl from lateral edge to lateral edge. This followed by 2nd imbricating running locking 0 Vicryl lateral edge to lateral edge. Hemostasis was assured the patient had stated a desire for sterilization. The right fallopian tube was grasped a good knuckle of tube free tied with 0 chromic anterior posterior legs were I had to free tied the portion between cut and passed off the table with excellent hemostasis. This was repeated on the contralateral tube by grabbing at its midportion a good knuckle 2 free tied with 0 chromic the perineum pierced and between the distal and proximal legs free tied with 0 chromic the portion between cut and passed off the table. Hemostasis was assured. Uterine incision appeared dry was returned to the abdomen the you would abdomen was cleared of clots. The risks fair amount of rawness to the anterior surface of the uterus a was sprinkled with [place] term. Hemostasis was assured laps removed and accounted for. The fascia closed with continuous running 0 Vicryl from lateral edge to midline bilaterally. Irrigation subcutaneous layer and the skin closed with 4 Monocryl and glue blood loss was 725 all sponge needle instrument counts were correct. There were no immediate complications noted Estimated Blood Loss 725 Drains No Packing No Pathology None sent Complications No immediate complications Condition Stable Disposition PACU
[2023-03-19] MEDS: OXYTOCIN 30 UNITS/NS 500 ML 30 UNITS/500 ML BAG 125 UNITS IV CONT (10:38)
--- NOTE | 2023-03-19 12:16 | SUR.PHASEI ---
Report called to Ramila SILVERIO. Pt going to room 282 for pp care. Plan to take pt into nursery to see baby once recovery done then move up to pp floor.
--- NOTE | 2023-03-19 12:35 | SUR.PHASEI ---
Recovery completed, pt/belongings and chart all taken to nursery at this time. Will move to pp floor when done visiting with baby.
--- NOTE | 2023-03-19 13:08 | PC.NURSE ---
Patient transferred to post room #282 via (stretcher ). Support person present. Oriented to unit, room, information board, rooming in, admission packet and security measures. Patient verbalizes understanding.
--- NOTE | 2023-03-19 13:10 | PC.NURSE ---
Pt done visiting with baby in nursery. Pt, spouse, belongings and chart all taken up to room 282 at this time. Infant remains in nursery. Bedside update report given to Ramila SILVERIO.
[2023-03-19] MEDS: DEXTROSE 5%/0.45% SOD CHL 1,000 ML 125 ML IV CONT (15:07)
[2023-03-20 00:20] VITALS: BP 120/76; PULSE 87; RESP 16; TEMP 37.1; O2SAT 97
[2023-03-20 05:12] VITALS: BP 108/69; PULSE 86; RESP 16; TEMP 36.7; O2SAT 100
[2023-03-20 05:57] LABS: Basophils Percent Auto 0.3 % (0.2-1.2); Eosinophils Absolute Auto 0.1 K/mm3 (0-0.3); Eosinophils Percent Auto 0.9 % (0-4.4); Hematocrit 29.4 % (37.0-47.0); Hemoglobin 9.1 g/dL (12.0-15.0); Immature Granulocyte Absolute 0.12 K/mm3 (0.00-0.031); Lymphocytes Absolute Auto 0.64 K/mm3 (0.9-3.2); Lymphocytes Percent Auto 5.5 % (18.3-44.2); Mean Corpuscular Volume 87.2 fl (80-100); Mean Platelet Volume 10.9 fl (7.4-10.4); Monocytes Absolute Auto 0.6 K/mm3 (0.1-0.6); Neutrophils Absolute Auto 10.2 K/mm3 (1.3-6.7); Neutrophils Percent Auto 87.3 % (45.5-73.1); Platelet Count Result 134 k/mm3 (150-375); Red Blood Count 3.37 M/mm3 (4.2-5.4); Red Cell Distribution Width 18.2 % (11.5-14.5); White Blood Count 11.7 K/mm3 (4.5-10.0)
--- NOTE | 2023-03-20 06:46 | P.PNOB_ITS ---
OB - PN: Subj Subjective Date/time seen: 03/20/23 06:46 Patient comments: no complaints and pain well controlled baby status: doing well OB - PN: Obj Data Labs 03/20/23 05:41 Labs: Laboratory Results - last 24 hr 03/19/23 03/20/23 08:49 05:41 WBC 8.4 11.7 H RBC 3.68 L 3.37 L Hgb 10.3 L D 9.1 L Hct 31.5 L 29.4 L MCV 85.6 87.2 MCH 28.0 27.0 MCHC 32.7 31.0 L RDW 18.5 H 18.2 H Plt Count 165 134 L MPV 11.1 H 10.9 H Immature Gran % (Auto) 0.7 H 1.0 H Neut % (Auto) 75.2 H 87.3 H Lymph % (Auto) 14.5 L 5.5 L [place] % (Auto) 7.7 5.0 Eos % (Auto) 1.7 0.9 Baso % (Auto) 0.2 0.3 Lymph # (Auto) 1.21 0.64 L [place] # (Auto) 0.6 0.6 Eos # (Auto) 0.1 0.1 Baso # (Auto) 0.0 0.0 Abs Immat Gran (auto) 0.06 H 0.12 H Absolute Neuts (auto) 6.3 10.2 H Absolute Nucleated RBC 0.0 0.0 Nucleated RBC % 0.0 0.0 HIV 1&2 Ab/P24 Ag 4thGn Negative Blood Type O Positive Antibody Screen Negative OB - PN A/P Plan day: 1 Plan: routine care Time Spent With Patient Time: Total time spent is greater than 50% in coordination of care (as documented) at patient's floor/unit and/or counseling patient: Time with patient: less than 15 minutes Exam Const: General: cooperative, healthy appearing and comfortable Nutritional Appearance: average body habitus Orientation/consciousness: oriented to person, oriented to place and oriented to time HENMT: Head: normal to inspection Resp: Effort & Inspection: normal respiratory effort Cardio: Rate: regular rate Rhythm: regular rhythm Heart sounds: S1 normal heart sound present and S2 normal heart sound present GI: Inspection: normal to inspection and incision (cdi)
[2023-03-20 07:29] LABS: Rapid Plasma Reagin Non-Reactive (NonReactive)
[2023-03-20 07:30] VITALS: BP 100/64; PULSE 104; RESP 20; TEMP 36.4; O2SAT 100
[2023-03-20] MEDS: IBUPROFEN 600 MG TABLET PO ×2 (12:30→20:05)
[2023-03-20] MEDS: DOCUSATE SODIUM 100 MG CAPSULE PO (12:30)
[2023-03-20] MEDS: MULTIVIT/MIN/PREN/FOL AC/IRON TABLET 1 TAB PO (12:30)
--- NOTE | 2023-03-20 13:48 | PC.NURSE ---
Addendum entered by Ania Tapia RN 03/20/23 13:55: Introduction was at [phone] Original Note: [id number] Introductions were made, then consulted with patient to assess needs related to , however; mother is bottle feeding at this time. Mother led the conversation with her?plans to feed?her , the?experience so far and her attempt, pump and supplement plan feeding her 35 EGA . Mother is happy with her plan. Reviewed how to protect her milk supply with stimulation every 2-3 hours with pumping. Resources provided for inpatient services with name written on the white board. Mother voiced understanding of information and will call if there is a request for assistance. Reported to the primary RN.
[2023-03-20 20:00] VITALS: BP 122/83; PULSE 96; RESP 18; TEMP 36.9; O2SAT 100
[2023-03-20] MEDS: POLYSACCHARIDE IRON COMPLEX 150 MG CAPSULE PO (20:05)
[2023-03-21] MEDS: IBUPROFEN 600 MG TABLET PO ×2 (05:00→18:00)
[2023-03-21 08:12] VITALS: BP 126/89; PULSE 91; RESP 18; O2SAT 100
[2023-03-21] MEDS: DOCUSATE SODIUM 100 MG CAPSULE PO ×2 (09:55→18:00)
[2023-03-21] MEDS: MULTIVIT/MIN/PREN/FOL AC/IRON TABLET 1 TAB PO (09:55)
[2023-03-21] MEDS: POLYSACCHARIDE IRON COMPLEX 150 MG CAPSULE PO ×2 (09:55→18:00)
--- NOTE | 2023-03-21 12:44 | PM.OBPNVD ---
OB - PN: Subj Subjective Date/time seen: 03/21/23 12:44 Narrative: Pain OK. Tolerating diet. OB - PN: Obj Data Labs 03/20/23 05:41 OB - PN A/P Plan Comments: A: POD#2, doing well. P: Routine care. Exam Narrative: AVSS I/O OK ABD soft, nontender, fundus firm. Incision c/d/i. EXT nontender
--- NOTE | 2023-03-21 12:45 | PM.OBDSVD ---
DS: Admitting Diagnosis Discharge Date 03/22/23 Admitting Diagnosis IUP at 35 weeks SROM Placenta previa Vaginal bleeding Prior Desired sterility DS: Discharge Diagnosis Discharge Diagnosis (1) Previous section: Code(s): Z98.891 - History of uterine scar from previous surgery Status: Acute (2) Placenta previa: Code(s): O44.00 - Complete placenta previa NOS or without hemorrhage, unspecified trimester Status: Acute (3) Premature rupture of membranes (PROM) at term with onset of labor after 24 hours, antepartum: Code(s): O42.12 - Full-term premature rupture of membranes, onset of labor more than 24 hours following rupture Status: Acute (4) Depression affecting : Code(s): O99.340 - Other mental disorders complicating , unspecified trimester; F32.9 - Major depressive disorder, single episode, unspecified Status: Chronic (5) Unwanted fertility: Code(s): Z30.09 - Encounter for other general counseling and advice on contraception Status: Acute (6) Vaginal bleeding during : Code(s): O46.90 - Antepartum hemorrhage, unspecified, unspecified trimester Status: Acute OB - DS: Summary OB Procedures : None OB Procedures Intrapartum: and Tubal ligation OB Procedures: : None Peripartum Data Procedures: Procedures Operation Date: 03/19/23 09:00 Actual Procedure Side Surgeon p Section Wilmer Griggs MD Time Spent with Patient Time attestation: Total time spent providing and/or coordinating discharge services: DS: Data Data Completed and Pending Pending studies at discharge: Pending at discharge 03/19/23 09:57 Surgical [PTH] Routine Discharge Plan Discharge Attending physician on discharge: Jeff De La Rosa Discharging Clinician: Jeff De La Rosa Patient Disposition: Home, Self-Care Activity: may shower, may drive after 2 weeks and pelvic rest Diet: regular Wound Care Instructions: incision open to air Discharge Instructions: Education: Mom and Baby Guide Given to: Mother Follow-Up: Call your delivering provider's office for an appointment to be seen in: 4 Weeks Mom and baby should come to the [facility] for the follow-up appointment. Appointment Date/Time: March 23, 2023 at 11:00 am What to expect at your follow-up visit: Blood Pressure Check Physical Assessment Call [phone] if you are unable to keep your appointment time. BREAST CARE: * Wear a snug supportive bra. * For engorgement discomfort: Breast Feeding: * Apply warm moist washcloths * Express milk as needed to relieve engorgement * Wear loose clothing * For sore nipples: * Identify correct latch-on * Apply warm moist washcloths before and after nursing * Air dry nipples after nursing * May apply Lansinoh cream to nipples ABDOMINAL INCISION: * Allow incision to air dry * Do NOT use lotions or powders on your incision * When showering, allow soap and water to run over the incision, but do not wash incision PERINEAL CARE: * Until bleeding stops, use your howie bottle after urinating * Change your pad frequently throughout the day * You may take sitz baths several times a day (fill your bathtub with warm water and soak for 20 minutes.) Do NOT bathe in the water * No tub baths until seen by your physician - You may shower ACTIVITY: * Rest as much as possible. * Do not exercise or lift anything heavier than your baby (such as laundry or other children.) * Avoid stairs or driving as much as possible. * Do not put anything into the vagina. No douching, tampons, or sexual activity until seen by physician. NOTIFY PHYSICIAN IF YOU HAVE ANY QUESTIONS OR IF ANY OF THE FOLLOWING SYMPTOMS OCCUR: * If your incision becomes red, swollen, or more painful than what you have experienced in the hospita
[2023-03-21 19:55] VITALS: BP 118/84; PULSE 96; RESP 18; TEMP 37.1; O2SAT 100
[2023-03-22 07:08] VITALS: BP 109/70; PULSE 91; RESP 16; TEMP 36.6; O2SAT 99
--- NOTE | 2023-03-22 08:40 | PC.NURSE ---
On 03/22/23, the student, Debbie Hale, provided care and completed [facility] documentation on this patient. I have reviewed the student's documentation and agree with the findings.
[2023-03-22] MEDS: IBUPROFEN 600 MG TABLET PO (08:57)
[2023-03-22] MEDS: DOCUSATE SODIUM 100 MG CAPSULE PO (08:57)
[2023-03-22] MEDS: MULTIVIT/MIN/PREN/FOL AC/IRON TABLET 1 TAB PO (08:57)
[2023-03-22] MEDS: POLYSACCHARIDE IRON COMPLEX 150 MG CAPSULE PO (08:57)
[2023-03-23 08:26] VITALS: BP 118/71; PULSE 94; RESP 18; TEMP 37.2; O2SAT 99
== END 2023-03-22 11:27 | disposition home or self-care (01) | DRG 784 ==
LOC: ANHLDR 09:07 → ANHOB2 03-21 10:39 → ANHLDR 03-23 09:00 → ANHOB2 03-23 09:00
PROVIDERS: Admitting Provider Obstetrics & Gynecology; PCP Internal Medicine; Visit Provider Obstetrics & Gynecology
PROC: 10D00Z1 Extraction of Products of Conception, Low, Open Approach (ICD-10-PCS; CPT 59514; principal; 2023-03-19 09:00)
DX: O44.03 Complete placenta previa NOS or without hemorrhage, third trimester (principal); O98.32 Other infections with a predominantly sexual mode of transmission complicating childbirth; A60.09 Herpesviral infection of other urogenital tract; Z37.0 Single live birth; Z3A.35 35 weeks gestation of pregnancy; O42.913 Preterm premature rupture of membranes, unspecified as to length of time between rupture and onset of labor, third trimester; O34.211 Maternal care for low transverse scar from previous cesarean delivery; Z30.2 Encounter for sterilization; O32.2XX0 Maternal care for transverse and oblique lie, not applicable or unspecified; O99.344 Other mental disorders complicating childbirth; F32.A Depression, unspecified
CPT/HCPCS: 36415; 85025; 86592; 86703; 86850; 86900; 86901; 88302; A9270; G0432; J0690; J1885; J1940; J2274; J2370; J2405; J2590; J7120